=== PATIENT | female | born 1960 | race Caucasian/White ===

== ENCOUNTER 2022-01-13 09:02 | Emergency (ER) | payer SELFPAY | END 2022-01-13 10:01 | disposition home or self-care (01) | LOC: MADERS 09:02 | DX: S93.602A Unspecified sprain of left foot, initial encounter (principal); S93.402A Sprain of unspecified ligament of left ankle, initial encounter; X50.1XXA Overexertion from prolonged static or awkward postures, initial encounter; J45.909 Unspecified asthma, uncomplicated; E11.9 Type 2 diabetes mellitus without complications; F17.210 Nicotine dependence, cigarettes, uncomplicated ==